=== PATIENT | female | born 1990 | race Caucasian/White ===

== ENCOUNTER 2017-01-29 20:29 | Emergency (ER) | payer OTHER ==
[2017-01-29 21:29] LABS: BILIRUBIN NEGATIVE (NEGATIVE); BLOOD TRACE-INTACT Ery/uL (NEGATIVE); CLARITY CLEAR (CLEAR); COLOR YELLOW (YELLOW); GLUCOSE (U) NORMAL (NORMAL); KETONE (U) NEGATIVE (NEGATIVE); LEUKOCYTES NEGATIVE Leu/uL (NEGATIVE); NITRITE NEGATIVE (NEGATIVE); PROTEIN NEGATIVE (NEGATIVE); UROBILINOGEN 0.2 mg/dL (0.2-1.0)
[2017-01-29 21:36] LABS: BACTERIA TRACE; MUCOUS MODERATE
[2017-01-29 21:37] LABS: BASOPHIL 0.3 % (0-2); EOSINOPHIL 2.3 % (0-5); HCT 38.4 % (37.0-47.0); HGB 13.7 g/dl (12.5-16.0); LYMPHOCYTE 47.4 % (15-48); MCH 31.4 pg (25.0-31.0); MCHC 35.7 g/dL (32.0-36.0); MCV 87.9 fL (78.0-100.0); MONOCYTE 6.7 % (0-12); NEUTROPHIL 43.3 % (41-80); PLT 300 K/uL (150-400); RBC 4.37 M/uL (4.20-5.40); RDW 12.7 % (11.5-14.0)
[2017-01-29 21:48] LABS: INR 0.96 (0.9-1.2); PROTHROMBIN TIME 11.9 SECONDS (11.4-13.2); PTT 27.4 SECONDS (24.3-32.1)
[2017-01-29 21:58] LABS: ALBUMIN 4.4 g/dL (3.5-5.0); BILIRUBIN - TOTAL 0.2 mg/dL (0.1-1.0); CREATININE 0.6 mg/dL (0.5-1.0); GLOBULIN (CALCULATION) 2.6 g/dL (2.2-4.2); POTASSIUM 4.1 mmol/L (3.5-5.1)
== END 2017-01-30 00:14 | disposition home or self-care (01) ==
LOC: FER 20:29
PROVIDERS: Internal Medicine
DX: K29.70 Gastritis, unspecified, without bleeding (principal); K64.4 Residual hemorrhoidal skin tags; F17.210 Nicotine dependence, cigarettes, uncomplicated; Z79.899 Other long term (current) drug therapy
CPT/HCPCS: 36415; 80053; 81001; 83690; 85025; 85610; 85730

== ENCOUNTER 2020-11-02 19:56 | Emergency (ER) | payer OTHER ==
[~2020-11-02 19:56] MED LIST: CEFDINIR300 M1 PO; COLACE100 MG PO; DIFLUCAN150 MG PO; GAS-X125 MG PO; NORCO 5-325 TA1 EACH PO; ONDANSETRON ODT4 MG SL; PEPCID AC20 MG PO; PHENERGAN25 M1 PO; ZPAK PO
[2020-11-02 21:28] LABS: BILIRUBIN NEGATIVE (NEGATIVE); BLOOD NEGATIVE Ery/uL (NEGATIVE); CLARITY HAZY (CLEAR); COLOR YELLOW (YELLOW); GLUCOSE (U) NORMAL (NORMAL); LEUKOCYTES NEGATIVE Leu/uL (NEGATIVE); NITRITE NEGATIVE (NEGATIVE); PROTEIN NEGATIVE (NEGATIVE); SPECIFIC GRAVITY 1.015 (1.001-1.030); UROBILINOGEN 0.2 mg/dL (0.2-1.0); pH 8.5 (5.0-9.0)
[2020-11-02 21:51] LABS: BASOPHIL 0.6 % (0-2); EOSINOPHIL 1.9 % (0-5); HGB 13.5 g/dl (12.5-16.0); LYMPHOCYTE 35.7 % (15-48); MCH 32.7 pg (25.0-31.0); MCHC 36.5 g/dL (32.0-36.0); MCV 89.6 fL (78.0-100.0); MONOCYTE 5.2 % (0-12); MPV 9.6 fL (6.0-9.5); NEUTROPHIL 56.4 % (41-80); NRBC 0; PLT 261 K/uL (150-400); RBC 4.13 M/uL (4.20-5.40); RDW 12.9 % (11.5-14.0); WBC 10.5 K/uL (4.0-10.5)
[2020-11-02 22:17] LABS: ALBUMIN 3.7 g/dL (3.4-5.0); CREATININE 0.62 mg/dL (0.51-0.95); GLOBULIN (CALCULATION) 3.6 g/dL; POTASSIUM 4.1 mmol/L (3.5-5.1); TOTAL PROTEIN 7.3 g/dL (6.4-8.2)
[2020-11-02 22:18] LABS: BILIRUBIN - TOTAL 0.5 mg/dL (0.2-1.0)
[2020-11-03] MEDS ORDERED: ONDANSETRON ODT4 MG SL (00:25)
[2020-11-03] MEDS ORDERED: CIPRO500 MG PO (00:25)
[2020-11-03] MEDS ORDERED: NORCO 5-325 TA1 EACH PO (00:25)
[2020-11-03] MEDS ORDERED: METRONIDAZOLE500 MG PO (00:25)
== END 2020-11-03 00:35 | disposition home or self-care (01) ==
LOC: FER 19:56
PROVIDERS: Emergency Medicine Emergency Medical Services
DX: R10.32 Left lower quadrant pain (principal); F17.210 Nicotine dependence, cigarettes, uncomplicated; Z90.49 Acquired absence of other specified parts of digestive tract
CPT/HCPCS: 36415; 80053; 81003; 83605; 83690; 85025; 87339; J1885; J2405; J7030; Q9967

== ENCOUNTER 2021-02-22 07:28 | Inpatient (IN) | payer OTHER ==
[~2021-02-22] VITALS: Ht 157.5 cm; Wt 74.0 kg
[~2021-02-22 07:28] MED LIST changes: +CIPRO500 MG PO; +METRONIDAZOLE500 MG PO
[2021-02-22 08:19] LABS: BASOPHIL 0.6 % (0-2); EOSINOPHIL 2.5 % (0-5); HCT 40.2 % (37.0-47.0); HGB 13.9 g/dl (12.5-16.0); LYMPHOCYTE 17.9 % (15-48); MCH 31.3 pg (25.0-31.0); MCHC 34.6 g/dL (32.0-36.0); MCV 90.5 fL (78.0-100.0); MONOCYTE 4.9 % (0-12); MPV 9.4 fL (6.0-9.5); NEUTROPHIL 73.9 % (41-80); NRBC 0; PLT 263 K/uL (150-400); RBC 4.44 M/uL (4.20-5.40); RDW 12.7 % (11.5-14.0); WBC 12.1 K/uL (4.0-10.5)
[2021-02-22 08:20] LABS: BILIRUBIN NEGATIVE (NEGATIVE); BLOOD 1+ Ery/uL (NEGATIVE); CLARITY CLEAR (CLEAR); COLOR YELLOW (YELLOW); GLUCOSE (U) NORMAL (NORMAL); LEUKOCYTES NEGATIVE Leu/uL (NEGATIVE); NITRITE NEGATIVE (NEGATIVE); PROTEIN NEGATIVE (NEGATIVE); SPECIFIC GRAVITY 1.025 (1.001-1.030); UROBILINOGEN 0.2 mg/dL (0.2-1.0); pH 5.5 (5.0-9.0)
[2021-02-22 08:29] LABS: BACTERIA 1+; SQUAMOUS EPITHELIAL CELLS 20-50; URINARY RBC RARE
[2021-02-22 08:57] LABS: ALBUMIN 3.7 g/dL (3.4-5.0); BILIRUBIN - TOTAL 0.5 mg/dL (0.2-1.0); BUN/CREAT RATIO (CALC) 14.7 RATIO; CREATININE 0.68 mg/dL (0.51-0.95); GLOBULIN (CALCULATION) 3.7 g/dL; POTASSIUM 4.3 mmol/L (3.5-5.1); TOTAL PROTEIN 7.4 g/dL (6.4-8.2)
[2021-02-22 15:33] LABS: BASOPHIL 0.4 % (0-2); EOSINOPHIL 1.8 % (0-5); HGB 13.5 g/dl (12.5-16.0); LYMPHOCYTE 20.3 % (15-48); MCH 30.7 pg (25.0-31.0); MCHC 33.8 g/dL (32.0-36.0); MCV 90.9 fL (78.0-100.0); MONOCYTE 4.9 % (0-12); MPV 9.7 fL (6.0-9.5); NEUTROPHIL 72.2 % (41-80); NRBC 0; PLT 245 K/uL (150-400); RDW 12.8 % (11.5-14.0); WBC 11.3 K/uL (4.0-10.5)
[2021-02-23 04:22] LABS: HCG (URINE) SCREEN NEGATIVE (NEGATIVE)
[2021-02-23 06:22] LABS: BASOPHIL 0.6 % (0-2); EOSINOPHIL 2.5 % (0-5); HCT 34.6 % (37.0-47.0); HGB 11.9 g/dl (12.5-16.0); LYMPHOCYTE 31.3 % (15-48); MCH 31.5 pg (25.0-31.0); MCHC 34.4 g/dL (32.0-36.0); MCV 91.5 fL (78.0-100.0); MONOCYTE 6.3 % (0-12); MPV 9.6 fL (6.0-9.5); NEUTROPHIL 59.2 % (41-80); NRBC 0; PLT 218 K/uL (150-400); RBC 3.78 M/uL (4.20-5.40); RDW 12.7 % (11.5-14.0); WBC 8.3 K/uL (4.0-10.5)
[2021-02-23 06:44] LABS: BUN/CREAT RATIO (CALC) 10.3 RATIO; CREATININE 0.68 mg/dL (0.51-0.95); POTASSIUM 3.8 mmol/L (3.5-5.1)
[2021-02-24 05:56] LABS: BASOPHIL 0.8 % (0-2); EOSINOPHIL 3.5 % (0-5); HGB 11.4 g/dl (12.5-16.0); LYMPHOCYTE 44.7 % (15-48); MCH 30.6 pg (25.0-31.0); MCHC 33.5 g/dL (32.0-36.0); MCV 91.4 fL (78.0-100.0); MONOCYTE 5.9 % (0-12); MPV 9.8 fL (6.0-9.5); NEUTROPHIL 44.8 % (41-80); NRBC 0; PLT 215 K/uL (150-400); RBC 3.72 M/uL (4.20-5.40); RDW 12.6 % (11.5-14.0); WBC 6.6 K/uL (4.0-10.5)
[2021-02-24 06:29] LABS: CREATININE 0.75 mg/dL (0.51-0.95); POTASSIUM 3.9 mmol/L (3.5-5.1)
[2021-02-24] MEDS ORDERED: LACTOBACILLUS1 EACH PO (12:31)
[2021-02-24] MEDS ORDERED: NORCO 5-325 TA1 EACH PO (12:31)
[2021-02-24] MEDS ORDERED: AUGMENTIN 875-1 EACH PO (12:31)
[2021-02-24] MEDS ORDERED: MIRALAX 238GM238 GM PO (12:34)
== END 2021-02-24 13:26 | disposition home or self-care (01) | DRG 392 ==
LOC: FER 07:28 → FMS 11:03
PROVIDERS: Allergy & Immunology Allergy; Emergency Medicine; Surgery; ADMIT Internal Medicine
DX: K57.20 Diverticulitis of large intestine with perforation and abscess without bleeding (principal); Z20.822 Contact with and (suspected) exposure to COVID-19; F17.200 Nicotine dependence, unspecified, uncomplicated; K21.9 Gastro-esophageal reflux disease without esophagitis; K58.9 Irritable bowel syndrome, unspecified; Z90.49 Acquired absence of other specified parts of digestive tract; Z85.118 Personal history of other malignant neoplasm of bronchus and lung; Z85.3 Personal history of malignant neoplasm of breast; Z14.1 Cystic fibrosis carrier; Z88.2 Allergy status to sulfonamides; Z91.048 Other nonmedicinal substance allergy status; Z82.49 Family history of ischemic heart disease and other diseases of the circulatory system; Z82.5 Family history of asthma and other chronic lower respiratory diseases; Z98.890 Other specified postprocedural states
CPT/HCPCS: 36415; 74022; 80048; 80053; 81001; 84703; 85025; 87040; J2060; J2270; J2405; J2543; J7030; Q9967; U0002

== ENCOUNTER 2021-08-19 21:01 | Emergency (ER) | payer OTHER ==
[~2021-08-19 21:01] MED LIST changes: +AUGMENTIN 875-1 EACH PO; +LACTOBACILLUS1 EACH PO; +MIRALAX 238GM238 GM PO
[2021-08-19 22:28] LABS: BILIRUBIN NEGATIVE (NEGATIVE); BLOOD NEGATIVE Ery/uL (NEGATIVE); CLARITY CLEAR (CLEAR); COLOR YELLOW (YELLOW); GLUCOSE (U) NORMAL (NORMAL); LEUKOCYTES NEGATIVE Leu/uL (NEGATIVE); NITRITE NEGATIVE (NEGATIVE); PROTEIN NEGATIVE (NEGATIVE); UROBILINOGEN 0.2 mg/dL (0.2-1.0)
[2021-08-19 22:28] LABS: BASOPHIL 0.4 % (0-2); EOSINOPHIL 1.3 % (0-5); HCT 38.3 % (37.0-47.0); HGB 13.5 g/dl (12.5-16.0); LYMPHOCYTE 25.9 % (15-48); MCH 31.1 pg (25.0-31.0); MCHC 35.2 g/dL (32.0-36.0); MCV 88.2 fL (78.0-100.0); MONOCYTE 5.1 % (0-12); MPV 9.3 fL (6.0-9.5); NEUTROPHIL 67.1 % (41-80); NRBC 0; PLT 334 K/uL (150-400); RBC 4.34 M/uL (4.20-5.40); WBC 13.3 K/uL (4.0-10.5)
[2021-08-19 22:34] LABS: BACTERIA TRACE; URINARY WBC RARE
[2021-08-19 22:35] LABS: YEAST PRESENT
[2021-08-19 22:46] LABS: ALBUMIN 3.9 g/dL (3.4-5.0); BILIRUBIN - TOTAL 0.3 mg/dL (0.2-1.0); BUN/CREAT RATIO (CALC) 10.8 RATIO; CREATININE 0.65 mg/dL (0.51-0.95); GLOBULIN (CALCULATION) 3.7 g/dL; POTASSIUM 3.4 mmol/L (3.5-5.1); TOTAL PROTEIN 7.6 g/dL (6.4-8.2)
[2021-08-20] MEDS ORDERED: ONDANSETRON ODT4 MG PO (00:07)
[2021-08-20] MEDS ORDERED: PHENERGAN25 M1 PO (00:07)
[2021-08-20] MEDS ORDERED: PERCOCET 5-3251 EACH PO (00:07)
[2021-08-20] MEDS ORDERED: CIPRO500 MG PO (00:07)
== END 2021-08-20 00:35 | disposition home or self-care (01) ==
LOC: FER 21:01
PROVIDERS: Physician Assistant
DX: K57.32 Diverticulitis of large intestine without perforation or abscess without bleeding (principal); Z88.1 Allergy status to other antibiotic agents; Z88.2 Allergy status to sulfonamides
CPT/HCPCS: 36415; 80053; 81001; 83690; 85025; J2270; J2405; J7030; Q9967

== ENCOUNTER 2022-01-20 12:24 | Emergency (ER) | payer OTHER ==
[~2022-01-20 12:24] MED LIST changes: +ONDANSETRON ODT4 MG PO; +PERCOCET 5-3251 EACH PO
[2022-01-20 13:34] LABS: BILIRUBIN NEGATIVE (NEGATIVE); BLOOD NEGATIVE Ery/uL (NEGATIVE); CLARITY CLEAR (CLEAR); COLOR YELLOW (YELLOW); GLUCOSE (U) NORMAL (NORMAL); LEUKOCYTES NEGATIVE Leu/uL (NEGATIVE); NITRITE NEGATIVE (NEGATIVE); PROTEIN NEGATIVE (NEGATIVE); SPECIFIC GRAVITY >=1.030 (1.001-1.030); UROBILINOGEN 0.2 mg/dL (0.2-1.0)
[2022-01-20 13:40] LABS: BASOPHIL 0.6 % (0-2); EOSINOPHIL 0.6 % (0-5); HCT 38.4 % (37.0-47.0); HGB 13.4 g/dl (12.5-16.0); LYMPHOCYTE 18.2 % (15-48); MCH 30.7 pg (25.0-31.0); MCHC 34.9 g/dL (32.0-36.0); MCV 88.1 fL (78.0-100.0); MONOCYTE 5.1 % (0-12); NEUTROPHIL 75.1 % (41-80); NRBC 0; PLT 331 K/uL (150-400); RBC 4.36 M/uL (4.20-5.40); RDW 12.2 % (11.5-14.0); WBC 12.7 K/uL (4.0-10.5)
[2022-01-20 14:09] LABS: ALBUMIN 4.1 g/dL (3.4-5.0); BILIRUBIN - TOTAL 0.5 mg/dL (0.2-1.0); BUN/CREAT RATIO (CALC) 11.1 RATIO; CREATININE 0.72 mg/dL (0.51-0.95); GLOBULIN (CALCULATION) 3.9 g/dL; LACTIC ACID 0.6 mmol/L (0.4-1.9); POTASSIUM 3.7 mmol/L (3.5-5.1)
[2022-01-20] MEDS ORDERED: NORCO 5-325 TA1 EACH PO (14:41)
[2022-01-20] MEDS ORDERED: ONDANSETRON ODT4 MG PO (14:41)
[2022-01-20] MEDS ORDERED: METRONIDAZOLE500 MG PO (14:41)
[2022-01-20] MEDS ORDERED: CIPRO500 MG PO (14:41)
== END 2022-01-20 15:08 | disposition home or self-care (01) ==
LOC: FER 12:24
PROVIDERS: Emergency Medicine
DX: K57.92 Diverticulitis of intestine, part unspecified, without perforation or abscess without bleeding (principal); Z88.2 Allergy status to sulfonamides
CPT/HCPCS: 36415; 80053; 81003; 83605; 83690; 85025; J2405; J7030

== ENCOUNTER 2022-02-03 19:45 | Emergency (ER) | payer OTHER ==
[2022-02-03 20:55] LABS: BASOPHIL 0.9 % (0-2); BILIRUBIN NEGATIVE (NEGATIVE); BLOOD NEGATIVE Ery/uL (NEGATIVE); CLARITY CLEAR (CLEAR); COLOR YELLOW (YELLOW); EOSINOPHIL 1.7 % (0-5); GLUCOSE (U) NORMAL (NORMAL); HGB 13.2 g/dl (12.5-16.0); LEUKOCYTES NEGATIVE Leu/uL (NEGATIVE); LYMPHOCYTE 47.5 % (15-48); MCH 30.8 pg (25.0-31.0); MCHC 34.7 g/dL (32.0-36.0); MCV 88.8 fL (78.0-100.0); MONOCYTE 4.1 % (0-12); MPV 9.2 fL (6.0-9.5); NEUTROPHIL 45.5 % (41-80); NITRITE NEGATIVE (NEGATIVE); NRBC 0; PLT 303 K/uL (150-400); PROTEIN NEGATIVE (NEGATIVE); RBC 4.28 M/uL (4.20-5.40); RDW 12.1 % (11.5-14.0); SPECIFIC GRAVITY 1.015 (1.001-1.030); UROBILINOGEN 0.2 mg/dL (0.2-1.0); WBC 7.5 K/uL (4.0-10.5); pH 6.5 (5.0-9.0)
[2022-02-03 21:06] LABS: SQUAMOUS EPITHELIAL CELLS RARE; URINARY WBC RARE
[2022-02-03 21:16] LABS: ALBUMIN 4.1 g/dL (3.4-5.0); BILIRUBIN - TOTAL 0.5 mg/dL (0.2-1.0); BUN/CREAT RATIO (CALC) 7.8 RATIO; CREATININE 0.77 mg/dL (0.51-0.95); GLOBULIN (CALCULATION) 3.8 g/dL; TOTAL PROTEIN 7.9 g/dL (6.4-8.2)
== END 2022-02-03 23:21 | disposition home or self-care (01) ==
LOC: FER 19:45
PROVIDERS: Emergency Medicine
DX: K57.32 Diverticulitis of large intestine without perforation or abscess without bleeding (principal)
CPT/HCPCS: 36415; 80053; 81001; 84703; 85025; J1885; J2405; J7030; Q9967